=== PATIENT | female | born 1950 | race African-American/Black ===

== ENCOUNTER → 2023-11-14 | Emergency (ER) | payer OTHER ==
[~2023-11-14] MED LIST: HYDROCODONE/APAP 10/325 TAB ONE; ONDANSETRON 4 MG (ODT) TAB ONE; methocarbamoL 750 MG TAB ONE
--- NOTE | 2023-11-15 00:25 | EDPHYS ---
Physician Documentation [facility] Name: Vaishnavi Hogue Age: 73 yrs Sex: Female : 1950 Arrival Date: 11/14/2023 Time: 21:07 Bed 4 Private MD: out of town, doctor ED Physician Tez Barney HPI: 11/13 21:18 This 73 yrs old Black Female presents to ER via Unassigned with complaints of Fall sp4 Injury, Head Injury-Adult, Dizziness. 11/14 00:19 Patient is a very pleasant 73-year-old female who presents with acute fall last sp4 Monday 4 days ago with associated pain in the L-spine and associated headache from head injury at home. No additional traumatic injury reported. History of prior cervical spine surgery for facet arthropathy. . Historical: - Allergies: 11/13 21:46 No Known Allergies; vc1 - Home Meds: 21:46 atorvastatin Oral once daily [Active]; amlodipine oral [Active]; hydroxychloroquine vc1 oral [Active]; Metoprolol Tartrate Oral [Active]; Advantage with Iron 2.07-5.6 gram/100 kcal oral powder [Active]; Calcium Carbonate Oral [Active]; - PSHx: 21:46 Gastric Bypass; vc1 - Immunization history:: Client reports receiving the 2nd dose of the Covid vaccine, Flu vaccine is not up to date. - Social history:: Smoking status: Patient denies any tobacco usage or history of. - Family history:: not pertinent. ROS: 11/14 00:19 Constitutional: Negative for fever, chills, and weight loss, positive headache sp4 positive L-spine pain All other systems are negative, Exam: 00:19 Constitutional: This is a well developed, well nourished patient who is awake, alert, sp4 and in no acute distress. Head/Face: Normocephalic, atraumatic. Eyes: Pupils equal round and reactive to light, extra-ocular motions intact. Lids and lashes normal. Conjunctiva and sclera are not injected. Cornea within normal limits. Periorbital areas with no swelling, redness, or edema. ENT: Nares patent. No nasal discharge, no septal abnormalities noted. Tympanic membranes are normal and external auditory canals are clear. Oropharynx with no redness, swelling, or masses, exudates, or evidence of obstruction, uvula midline. Mucous membranes moist. Neck: Trachea midline, no thyromegaly or masses palpated, and no cervical lymphadenopathy. Supple, full range of motion without nuchal rigidity, or vertebral point tenderness. Posterior C spinal scar from prior cervical spine surgery Chest/axilla: Normal chest wall appearance and motion. Nontender with no deformity. No lesions are appreciated. Cardiovascular: Regular rate and rhythm with a normal S1 and S2. No gallops, murmurs, or rubs. Normal PMI, no JVD. No pulse deficits. Respiratory: Lungs have equal breath sounds bilaterally, clear to auscultation and percussion. No rales, rhonchi or wheezes noted. No increased work of breathing, no retractions or nasal flaring. Abdomen/GI: Soft, with normal bowel sounds. No distension or tympany. No guarding or rebound. No evidence of tenderness throughout. Back: No spinal tenderness. No costovertebral tenderness. Skin: Warm, dry with normal turgor. Normal color with no rashes, no lesions, and no evidence of cellulitis. MS/ Extremity: Pulses equal, no cyanosis. Neurovascular intact. Full, normal range of motion. Neuro: Awake and alert, GCS 15, oriented to person, place, time, and situation. Cranial nerves II-XII grossly intact. Motor strength 5/5 in all extremities. Sensory grossly intact. Patient able to ambulate with assistance Psych: Awake, alert, with orientation to person, place and time. Behavior, mood, and affect are within normal limits Vital Signs: 11/13 21:35 BP 139 / 62; Pulse 80; Resp 16; Temp 98.4; Pulse Ox 99% ; Weight 136.53 kg; Height 5 vc1 ft. 7 in. ; Pain 10/10; 23:43 BP 130 / 57; Pulse 72; Resp 16; Pulse Ox 96% ; vc1 11/14 00:32 BP 134 / 54; Pulse 72; Resp 16; Pulse Ox 94% on R/A; vc1 11/13 21:35 Body Mass Index 47.14 (136.53 kg, 170.18 cm) vc1 11/13 21:35 Pain Scale: Adult vc1 [place] Coma Score: 00:19 Eye Response: spontaneous(4). Motor Response: obeys commands(6). Verbal Response: sp4 oriented(5). Total: 15. MDM: 11/13 21:58 Patient medically screened. sp4 11/14 00:02 ED course: CT Report - IMPRESSION: 1. No acute intracranial abnormality identified. 2. sp4 No acute osseous abnormality identified in the cervical spine. 3. No acute traumatic abnormality identified in the chest, abdomen, or pelvis. 4. Right ovarian 6.4 cm simple cystic structure. Recommend prompt follow-up with pelvic ultrasound. Electronically signed by: Diana Jameson MD 11/14/2023 11:44 PM. 00:18 ED course: CT C Spine in detail - CT cervical spine: No acute osseous abnormality sp4 identified. Postsurgical changes, with laminotomy defects on the left from C3 through C7. Vertebral body height and alignment are maintained. No atlantodental interval widening. Atlantoaxial alignment is maintained. The facet joints are well aligned. The posterior elements are intact. The occipital condyles are well aligned with the C1 lateral masses. The transverse foramina are intact. C2-C3: No significant central canal or neuroforaminal narrowing. C3-C4: Large posterior disc protrusion results in mild to moderate central canal narrowing to 0.6 cm AP. No significant neuroforaminal narrowing. C4-C5: Mild right-sided and moderate left-sided neuroforaminal narrowing due to uncinate hypertrophy. No significant central canal narrowing. C5-C6: Posterior disc osteophyte complex results in mild central canal narrowing to 0.7 cm AP. Mild bilateral neuroforaminal narrowing due to uncinate hypertrophy. C6-C7: Posterior disc osteophyte complex results in borderline central canal narrowing to 0.8 cm AP. No significant neuroforaminal narrowing. Paraspinal soft tissues: No prevertebral soft tissue swelling. No evidence of epidural hematoma. . 00:22 Differential diagnosis: abrasion, closed head injury, contusion, fracture, laceration, sp4 multiple trauma. Data reviewed: vital signs, nurses notes, radiologic studies, CT scan. Consideration of Admission/Observation Escalation of care including admission/observation considered. ED course: CT report reveals no acute intracranial abnormality, no acute osseous abnormality of the cervical spine, no acute traumatic injury in the chest abdomen or pelvis. The right ovarian simple cyst. Otherwise no significant problem. Will advise outpatient pelvic ultrasound as recommended by radiology for right ovarian 6.4 cm simple cyst. . 11/13 21:41 Order name: CT Traumagram (Head C Spine CAP wo con) sp4 Administered Medications: 11/13 22:11 Drug: [place] PO 10 mg-325 mg 1 tabs PO once Route: PO; [facility] 11/14 00:33 Follow up: Response: No adverse reaction; Marked relief of symptoms; Pain is decreased vc1 11/13 22:11 Drug: Ondansetron PO 4 mg PO once Route: PO; [facility] 11/14 00:33 Follow up: Response: No adverse reaction; Marked relief of symptoms; Pain is decreased vc1 11/13 22:11 Drug: Methocarbamol PO 750 mg PO once Route: PO; [facility] 11/14 00:33 Follow up: Response: No adverse reaction; Marked relief of symptoms vc1 Disposition Summary: 11/15/23 00:24 Discharge Ordered Notes: Location: Home sp4 Problem: new sp4 Symptoms: have improved sp4 Condition: Stable sp4 Diagnosis - Other and unspecified ovarian cysts sp4 - Unspecified injury of head, initial encounter sp4 - Acute fall at home, acute head injury, acute lower back pain, acute lower back pain sp4 secondary to fall, incidental finding of right ovarian cyst Followup: sp4 - With: Private Physician - When: 7 - 10 days - Reason: Recheck today's complaints Discharge Instructions: - Discharge Summary Sheet sp4 - Head Injury, Adult sp4 - Ovarian Cyst, [id number] sp4 Forms: - Patient Portal Instructions sp4 Prescriptions: - methocarbamol 750 mg Oral tablet - take 1 tablet ORAL route every 8 hours PRN muscle soreness; 30 tablet; Refills: sp4 0, Product Selection Permitted - Tramadol 50 mg Oral tablet - take 1 tablet ORAL route every 8 hours as needed; 20 tablet; Refills: 0, sp4 Product Selection Permitted Signatures: Dispatcher [employer] Shayla Esquivel RN RN vc1 Tez Barney MD MD sp4 Es Ramirez RN RN [id number] Corrections: (The following items were deleted from the chart) 11/13 21:53 21:46 Allergies: Pepto-Bismol; states makes tongue; vc1 vc1
--- NOTE | 2023-11-15 00:25 | ER ---
Nurse's Notes [facility] Name: Vaishnavi Hogue Age: 73 yrs Sex: Female : 1950 Arrival Date: 11/14/2023 Time: 21:07 Bed 4 Private MD: out of town, doctor Diagnosis: Other and unspecified ovarian cysts;Unspecified injury of head, initial encounter;Acute fall at home, acute head injury, acute lower back pain, acute lower back pain secondary to fall, incidental finding of right ovarian cyst Presentation: 11/13 21:35 Chief complaint: Patient states: Fell and hit head Monday while doing dishes, leg went vc1 to sleep and when I stood up I fell monday. Coronavirus screen: Vaccine status: Patient reports receiving the 2nd dose of the covid vaccine. Client denies travel out of the [place] in the last 14 days. At this time, the client does not indicate any symptoms associated with coronavirus-19. Ebola Screen: Patient negative for fever greater than or equal to 101.5 degrees Fahrenheit, and additional compatible Ebola Virus Disease symptoms Patient denies exposure to infectious person. Patient denies travel to an Ebola-affected area in the 21 days before illness onset. No symptoms or risks identified at this time. Initial Sepsis Screen: Does the patient meet any 2 criteria? No. Patient's initial sepsis screen is negative. Does the patient have a suspected source of infection? No. Patient's initial sepsis screen is negative. Risk Assessment: Do you want to hurt yourself or someone else? Patient reports no desire to harm self or others. Onset of symptoms was November 10, 2023. Care prior to arrival: None. Activity prior to arrival: None. Mechanism of Injury: Fall. Transition of care: patient was not received from another setting of care. 21:35 Method Of Arrival: Ambulatory vc1 21:35 Acuity: JOB 2 vc1 Triage Assessment: 21:53 General: Appears in no apparent distress. comfortable, obese, Behavior is calm, vc1 cooperative, appropriate for age. Pain: Complains of pain in forehead, right protestant, right side of the back of head, right temporal area, right occipital area, right ear and right base of the skull Pain does not radiate. Pain currently is 10 out of 10 on a pain scale. Quality of pain is described as sharp, Pain began suddenly, 2-3 days ago. Is continuous. Pain: Complains of pain in low back area Pain does not radiate. Pain currently is 10 out of 10 on a pain scale. Quality of pain is described as sharp, Pain began suddenly, Is continuous, Alleviated by medications, Aggravated by increased activity, repositioning, Noted to be grimacing, resistant to movement, Also complains of no other associated symptoms. EENT: No deficits noted. No signs and/or symptoms were reported regarding the EENT system. Neuro: Level of Consciousness is awake, alert, obeys commands, Oriented to person, place, time, situation, Appropriate for age. Cardiovascular: Capillary refill < 3 seconds Patient's skin is warm and dry. Respiratory: Airway is patent Respiratory effort is even, unlabored, Respiratory pattern is regular, symmetrical. GI: No deficits noted. No signs and/or symptoms were reported involving the gastrointestinal system. Abdomen is non-distended, obese. : No deficits noted. No signs and/or symptoms were reported regarding the genitourinary system. Derm: No deficits noted. No signs and/or symptoms reported regarding the dermatologic system. Musculoskeletal: Circulation, motion, and sensation intact. Capillary refill < 3 seconds, Range of motion: intact in all extremities, Reports pain in head and lower back. Historical: - Allergies: 21:46 No Known Allergies; vc1 - Home Meds: 21:46 atorvastatin Oral once daily [Active]; amlodipine oral [Active]; hydroxychloroquine vc1 oral [Active]; Metoprolol Tartrate Oral [Active]; Advantage with Iron 2.07-5.6 gram/100 kcal oral powder [Active]; Calcium Carbonate Oral [Active]; - PSHx: 21:46 Gastric Bypass; vc1 - Immunization history:: Client reports receiving the 2nd dose of the Covid vaccine, Flu vaccine is not up to date. - Social history:: Smoking status: Patient denies any tobacco usage or history of. - Family history:: not pertinent. Screenin:[facility] ED Fall Risk Assessment (Adult) History of falling in the last 3 months, vc1 including since admission Yes- fall prone (multiple falls) (3 pts) Confusion or Disorientation No (0 pts) Intoxicated or Sedated No (0 pts) Impaired Gait No (0 pts) Mobility Assist Device Used Yes (1 pt) Altered Elimination No (0 pt) Score/Fall Risk Level 3 or more points = High Risk Oriented to surroundings, Maintained a safe environment, Educated pt \T\ family on fall prevention, incl call for assistance when getting out of bed, Hourly rounding (assess needs \T\ fall precautionary measures) done, Utilized family, sitter, or virtual on call pharmacy technician as indicated. Abuse screen: Denies threats or abuse. Nutritional screening: No deficits noted. Tuberculosis screening: No symptoms or risk factors identified. Assessment: 21:56 General: See triage assessment. vc1 23:00 Reassessment: Patient and/or family updated on plan of care and expected duration. Pain vc1 level reassessed. Patient is alert, oriented x 3, equal unlabored respirations, skin warm/dry/pink. Patient states symptoms have improved. 23:43 Reassessment: Patient appears in no apparent distress at this time. No changes from vc1 previously documented assessment. Patient and/or family updated on plan of care and expected duration. Pain level reassessed. Patient is alert, oriented x 3, equal unlabored respirations, skin warm/dry/pink. 11/14 00:32 Reassessment: Patient appears in no apparent distress at this time. No changes from vc1 previously documented assessment. Patient and/or family updated on plan of care and expected duration. Pain level reassessed. Patient is alert, oriented x 3, equal unlabored respirations, skin warm/dry/pink. Vital Signs: 11/13 21:35 BP 139 / 62; Pulse 80; Resp 16; Temp 98.4; Pulse Ox 99% ; Weight 136.53 kg; Height 5 vc1 ft. 7 in. ; Pain 10/10; 23:43 BP 130 / 57; Pulse 72; Resp 16; Pulse Ox 96% ; vc1 11/14 00:32 BP 134 / 54; Pulse 72; Resp 16; Pulse Ox 94% on R/A; vc1 11/13 21:35 Body Mass Index 47.14 (136.53 kg, 170.18 cm) 1 11/13 21:35 Pain Scale: Adult vc1 [place] Coma Score: 00:19 Eye Response: spontaneous(4). Motor Response: obeys commands(6). Verbal Response: sp4 oriented(5). Total: 15. ED Course: 11/13 21:12 Patient arrived in ED. gm2 21:13 out of town, doctor is Private Physician. gm2 21:18 Tez Barney MD is Attending Physician. sp4 21:45 Triage completed. vc1 21:53 Arm band placed on right wrist. vc1 21:57 Patient has correct armband on for positive identification. Bed in low position. Call vc1 light in reach. Pulse ox on. NIBP on. 22:56 CT Traumagram (Head C Spine CAP wo con) In Process Unspecified. EDMS 23:43 Shayla Mg RN is Primary Nurse. vc1 11/14 00:32 No provider procedures requiring assistance completed. Patient did not have IV access vc1 during this emergency room visit. 00:33 Provided Education on: follow up with OB and pain management. vc1 Administered Medications: 11/13 22:11 Drug: [place] PO 10 mg-325 mg 1 tabs PO once Route: PO; [facility] 11/14 00:33 Follow up: Response: No adverse reaction; Marked relief of symptoms; Pain is decreased vc 11/13 22:11 Drug: Ondansetron PO 4 mg PO once Route: PO; [facility] 11/14 00:33 Follow up: Response: No adverse reaction; Marked relief of symptoms; Pain is decreased vc 11/13 22:11 Drug: Methocarbamol PO 750 mg PO once Route: PO; [facility] 11/14 00:33 Follow up: Response: No adverse reaction; Marked relief of symptoms vc1 Medication: 11/13 21:57 VIS not applicable for this client. vc1 Outcome: 11/14 00:24 Discharge ordered by . sp4 00:33 Discharged to home ambulatory, with family, vc1 00:33 Condition: improved 00:33 Discharge instructions given to patient, Instructed on discharge instructions, follow up and referral plans. medication usage, Demonstrated understanding of instructions, follow-up care, medications, Prescriptions given X 2, 00:34 Patient left the ED. vc1 Signatures: Dispatcher [employer] EDMS Shayla Mg, TOSHA RN vc1 Tez Barney MD MD sp4 Payal Wade gm2 Es Ramirez RN RN [id number] Corrections: (The following items were deleted from the chart) 11/13 21:53 21:46 Allergies: Pepto-Bismol; states makes tongue; vc1 vc1
[2023-11-15 01:05] VITALS: BP 134/54; TEMP 98.4; O2SAT 94
--- NOTE | 2023-11-15 19:34 | RAD REPORT ---
EXAM DESCRIPTION: CT - Head C Spine Cap Wo Con - 11/15/2023 6:51 am CLINICAL HISTORY: Fall head and back injury. TECHNIQUE: Noncontrast CT through the head was performed. Axial, coronal, and sagittal reconstructio ns were created and sent to PACS. CT of the cervical spine was performed without contrast. Axial, coronal, and sagittal reconstructions were created and sent to PACS. CT of the chest, abdomen, and pelvis was performed without contrast. Oral contrast was not administer ed. Axial, coronal, and sagittal reconstructions were created and sent to PACS. These exams were performed according to our departmental dose-optimization program which includes use of Automated Exposure Control, adjustment of the mA and/or kV according to patient size and/or use o f iterative reconstruction technique. COMPARISON: CT head from January 25, 2017. FINDINGS: CT Head: The brain parenchyma appears unremarkable. There is no intra-axial or extra-axial bleed seen. There i s no mass or mass effect. The ventricles are normal in size, shape, and configuration. The orbital co ntents appear unremarkable. The visualized paranasal sinuses and mastoid air cells are clear. No acute fracture is identified. CT cervical spine: No acute osseous abnormality identified. Postsurgical changes, with laminotomy defects on the left fr om C3 through C7. Vertebral body height and alignment are maintained. No atlantodental interval widen ing. Atlantoaxial alignment is maintained. The facet joints are well aligned. The posterior elements are intact. The occipital condyles are well aligned with the C1 lateral masses. The transverse forami na are intact. C2-C3: No significant central canal or neuroforaminal narrowing. C3-C4: Large posterior disc protrusion results in mild to moderate central canal narrowing to 0.6 cm AP. No significant neuroforaminal narrowing. C4-C5: Mild right-sided and moderate left-sided neuroforaminal narrowing due to uncinate hypertrophy. No significant central canal narrowing. C5-C6: Posterior disc osteophyte complex results in mild central canal narrowing to 0.7 cm AP. Mild b ilateral neuroforaminal narrowing due to uncinate hypertrophy. C6-C7: Posterior disc osteophyte complex results in borderline central canal narrowing to 0.8 cm AP. No significant neuroforaminal narrowing. Paraspinal soft tissues: No prevertebral soft tissue swelling. No evidence of epidural hematoma. CT chest, abdomen, and pelvis: Lungs and pleura: No pulmonary consolidation. No pleural effusion. No pneumothorax. Mediastinum and neck: No mediastinal lymphadenopathy identified by CT size criteria. Unremarkable haroldo earance of the thyroid gland. Cardiac: No cardiomegaly or pericardial effusion. No thoracic aortic aneurysm. Mild calcific atherosc lerosis. Mild prominence of the central pulmonary arteries, with the main pulmonary trunk measuring u p to 3.2 cm in diameter, which can be seen with pulmonary arterial hypertension. Hepatobiliary: No concerning hepatic lesion identified. Simple cyst in the left hepatic lobe. The gal lbladder is unremarkable. No biliary ductal dilatation. Pancreas: Unremarkable. Spleen: Unremarkable. Gastrointestinal: Carlos-en-Y gastric bypass. No evidence of bowel obstruction or perienteric inflammat ion. The appendix is nonvisualized. Adrenals: No abnormality identified in either adrenal gland. Renal: No concerning parenchymal abnormality in either kidney. No hydronephrosis or urolithiasis. Bladder/Reproductive: Unremarkable appearance of the urinary bladder by CT technique. Right ovarian s imple cystic structure measures 6.4 cm. Vascular/Lymphatics: No lymphadenopathy identified by CT size criteria. Abdominal aorta is normal in caliber. Musculoskeletal: Minimal irregularity at the tips of the lumbar spine transverse processes bilaterall y, favored chronic. No definite acute osseous abnormality is identified. Vertebral body height and al ignment are maintained. No concerning osseous lesion identified. Fluid / peritoneum: No significant free fluid. No free intraperitoneal air identified. IMPRESSION: 1. No acute intracranial abnormality identified. 2. No acute osseous abnormality identified in the cervical spine. 3. No acute traumatic abnormality identified in the chest, abdomen, or pelvis. 4. Right ovarian 6.4 cm simple cystic structure. Recommend prompt follow-up with pelvic ultrasound. Electronically signed by: Diana Jameson MD 11/14/2023 11:44 PM CDT Due to temporary technical issues with the PACS/Fluency reporting system, reports are being signed by the in house radiologists without review as a courtesy to insure prompt reporting. The interpreting radiologist is fully responsible for the content of the report.
== END ==
LOC: ER 21:07
DX: S09.90XA Unspecified injury of head, initial encounter (principal); M54.50 Low back pain, unspecified; W18.30XA Fall on same level, unspecified, initial encounter; N83.201 Unspecified ovarian cyst, right side
CPT/HCPCS: 70450; 71250; 72125; Q0162

== ENCOUNTER 2024-02-11 18:10 | Emergency (ER) | payer OTHER ==
[2024-02-11 20:01] LABS: Absolute Eosinophils 0.2 K/uL (0-0.5); Absolute Lymphocytes (CBC) 0.6 K/uL (0.7-4.9); Absolute Monocytes 0.5 K/uL (0.1-1.3); Absolute Neutrophil 6.5 K/uL (1.8-8.0); Basophils % 0.5 % (0-1.3); Eosinophils % 3.2 % (0-4.4); Hematocrit 33.6 % (36.0-45.0); Lymphocytes % 7.1 % (15.3-44.8); MCH 30.6 pg (27.0-35.0); MCHC 32.8 g/dL (32.0-36.0); MCV 93.4 fL (80-100); MPV 8.3 fL (7.6-11.3); Monocytes % 6.9 % (3.3-12.3); Neutrophils % 82.3 % (41.7-73.7); Nucleated Red Blood Cells % 0.1 % (0-0); Platelets 361 thou/uL (152-406); RBC Red Blood Cell Count 3.59 M/uL (3.86-4.86); Red Cell Distribution Width 15.6 % (12.1-15.2)
[2024-02-11 20:15] LABS: SARS-CoV-2 Antigen CONTROL BLUE LINE VIS/BG OK
[2024-02-11 20:16] LABS: SARS-CoV-2 Antigen Rapid Res Positive (Negative)
[2024-02-11 20:46] LABS: ALT/SGPT 16 U/L (13-56); Albumin 2.6 g/dL (3.4-5.0); Albumin/Globulin Ratio 0.6 (1.1-1.8); Alkaline Phosphatase 98 U/L (45-117); Anion Gap 7.2 mEq/L (5.0-15.0); BUN Blood Urea Nitrogen 14 mg/dL (7-18); Bicarbonate 28 mEq/L (21-32); Bilirubin Total 0.2 mg/dL (0.2-1.0); Globulin 4.7 g/dL (2.3-3.5); Glomerular Filtration Rate 49 ml/min (=/>90); Glucose Level 99 mg/dL (74-106); NT PRO-BNP 863 pg/mL (<125); Protein, Total 7.3 g/dL (6.4-8.2); Sodium Level 140 mEq/L (136-145); Troponin High Sensitivity 10.8 pg/mL (<58.9)
[2024-02-11 20:48] LABS: AST/SGOT 17 U/L (15-37); Bilirubin Direct < 0.2 mg/dL (0-0.2); Magnesium 2.1 mg/dL (1.6-2.4); Potassium 4.2 mEq/L (3.5-5.1)
--- NOTE | 2024-02-11 21:10 | RAD REPORT ---
EXAM DESCRIPTION: RAD - Chest Pa And Lat (2 Views) - 02/11/2024 8:42 pm CLINICAL HISTORY: COUGH COMPARISON: Chest Single View dated 01/28/2017; Chest Single View dated 01/25/2017; Chest Single View d ated 03/15/2016; CHEST SINGLE VIEW dated 09/04/2015; Head C Spine Cap Wo Con dated 11/14/2023 FINDINGS: Lines: None. Lungs: No evidence of edema or pneumonia. Opacity at the peripheral left lung base likely related to configuration of the patient's pericardial fat pad. Pleural: No significant pleural effusions or pneumothorax. Cardiac: The heart size is within normal limits. Mediastinum: Within normal limits. Bones: No acute fractures. Other: None IMPRESSION: No acute cardiopulmonary disease.
--- NOTE | 2024-02-11 22:22 | RAD REPORT ---
EXAM DESCRIPTION: CTAbdomen Pelvis W Contrast - 02/11/2024 10:02 pm CLINICAL HISTORY: ABD PAIN COMPARISON: Head C Spine Cap Wo Con dated 11/14/2023; CT HEAD CSPINE CAP WO CONTRAST dated 08/03/2015 TECHNIQUE: CT of the abdomen and pelvis was performed. All CT scans are performed using dose optimization technique as appropriate and may include automated exposure control or mA/KV adjustment according to patient size. FINDINGS: Lower chest: Coronary artery calcifications. Liver: Several liver lesions identified, the largest measuring 7 cm in the left hepatic lobe which alarcon s benign imaging features. Biliary: Distended with possible stones or sludge. No pericholecystic inflammatory changes. Stomach: Carlos-en-Y gastric bypass. Duodenum: No significant focal abnormality. Pancreas: No significant abnormality. Spleen: No significant abnormality. Adrenal: No suspicious lesions. Kidney/ureter: No hydronephrosis. No renal calculi. Too small to characterize and/or benign appearing renal lesions are noted. Retroperitoneum: No retroperitoneal adenopathy. Vascular: Severely stenotic SMA Bowel: No significant focal abnormality. Peritoneum: Similar nodularity in the omentum which is similar to 11/14/2023. It may be postoperative . Bladder: Grossly unremarkable. Reproductive: 6.7 cm cystic right adnexal lesion. Contour abnormality along the left aspect of the ut erus may be due to an underlying fibroid. Bones: No acute fracture. Multilevel degenerative changes are present in the spine. Other: n/a IMPRESSION: No acute intra-abdominal or pelvic finding. Right adnexal cystic lesion which is unchanged from 11/14/2023. Recommend further evaluation with non emergent pelvic ultrasound. Mild omental nodularity which may reflect postoperative changes. This is similar to 11/14/2023. The a ppearance can also be seen with peritoneal carcinomatosis though there are no other ancillary finding s to suggest underlying malignancy. Consider six-month follow-up CT. Distended gallbladder with sludge versus noncalcified stones. No CT findings to suggest acute cholecy stitis. Other incidental findings as noted above.
[2024-02-11] MEDS ORDERED: ONDANSETRON 4 MG/2 ML VIAL ONE (22:53)
[2024-02-11] MEDS ORDERED: FAMOTIDINE 20 MG/2 ML VIAL IV ONE (22:53)
[2024-02-11] MEDS ORDERED: NS 0.9% VIAL 10 ML ONE (22:53)
[2024-02-11] MEDS ORDERED: ACETAMINOPHEN 500 MG TAB ONE (23:46)
--- NOTE | 2024-02-12 08:56 | EDPHYS ---
Physician Documentation [facility] Name: Vaishnavi Hogue Age: 73 yrs Sex: Female : 1950 Arrival Date: 02/11/2024 Time: 18:10 Bed 11 Private MD: ED Physician Bg German Historical: - Allergies: 02/10 18:22 bismuth subsalicylate; ll1 - PMHx: 18:22 Diabetes - NIDDM; High Cholesterol; Gout; Hypertension; ll1 - PSHx: 18:22 Gastric Bypass; ll1 - Immunization history:: Adult Immunizations up to date. - Infectious Disease History:: Denies. - Social history:: Smoking status: Patient denies any tobacco usage or history of. Vital Signs: 18:23 BP 196 / 71; Pulse 88; Resp 18; Temp 98.5; Pulse Ox 99% ; Weight 131.09 kg; Height 5 ll1 ft. 7 in. ; Pain 8/10; 20:14 BP 168 / 74; Pulse 98; Resp 16; Temp 99.1; Pulse Ox 100% on R/A; al5 22:59 Temp 100.7(O); cm10 02/11 02:00 BP 130 / 57; Pulse 106; Resp 20; Temp 100.5; Pulse Ox 95% ; vc1 02/10 18:23 Body Mass Index 45.26 (131.09 kg, 170.18 cm) ll1 02/10 18:23 Pain Scale: Adult ll1 MDM: 02/10 19:10 Patient medically screened. 02/10 19:30 Order name: SARS RAPID; Complete Time: 21:02 02/10 19:30 Order name: Influenza Screen (a \T\ B); Complete Time: 21:02 cp 02/10 19:30 Order name: Strep; Complete Time: 21:02 cp 02/10 19:31 Order name: Basic Metabolic Panel; Complete Time: 21:02 cp 02/10 21:03 Interpretation: Normal except: CL 109; CRE 1.18; GFR 49. cp 02/10 19:31 Order name: CBC with Diff; Complete Time: 21:02 cp 02/10 21:03 Interpretation: Normal except: RBC 3.59; HGB 11.0; HCT 33.6; RDW 15.6; RIKKI% 82.3; LYM% cp 7.1; LYMA 0.6. 02/10 19:31 Order name: LFT's; Complete Time: 21:02 cp 02/10 21:03 Interpretation: Normal except: IBILI, CALC 0.0; ALB 2.6; GLOB 4.7; A/G 0.6. cp 02/10 19:31 Order name: Magnesium; Complete Time: 21:02 cp 02/10 19:31 Order name: NT PRO-BNP; Complete Time: 21:02 cp 02/10 19:31 Order name: Troponin HS; Complete Time: 21:02 cp 02/10 20:20 Order name: Throat Culture EDMA 02/10 19:30 Order name: XRAY Chest Pa And Lat (2 Views); Complete Time: 22:27 cp 02/10 21:10 Order name: CT Abd/Pelvis - IV Contrast Only; Complete Time: 22:27 cp 02/10 23:53 Order name: Abdomen Exam Limited [facility] 02/10 19:31 Order name: EKG; Complete Time: 19:31 cp 02/10 19:31 Order name: Cardiac monitoring; Complete Time: 19:55 cp 02/10 19:31 Order name: EKG - Nurse/Tech; Complete Time: 19:55 cp 02/10 19:31 Order name: IV Saline Lock; Complete Time: 19:55 cp 02/10 19:31 Order name: Labs collected and sent; Complete Time: 19:55 cp 02/10 19:31 Order name: O2 Per Protocol; Complete Time: 19:55 cp 02/10 19:31 Order name: O2 Sat Monitoring; Complete Time: 19:55 cp 02/10 20:06 Order name: Misc. Order: recollect lab- green top; Complete Time: 20:22 kmf 02/10 22:29 Order name: NPO; Complete Time: 22:59 cp 02/10 23:22 Order name: PO challenge; Complete Time: 23:51 cp Administered Medications: 22:59 Drug: Ondansetron IVP 4 mg IVP once; over 2 minutes Route: IVP; Site: right antecubital;cm10 22:59 Drug: Famotidine IVP 20 mg IVP once; dilute with 10 mL 0.9% NaCl; give over 2 minutes cm10 Route: IVP; Site: right antecubital; 23:51 Drug: Acetaminophen PO 1000 mg PO once Route: PO; cm10 Disposition Summary: 02/12/24 01:02 Discharge Ordered Notes: Location: Home cp Problem: new cp Symptoms: have improved cp Condition: Stable cp Diagnosis - SARS-associated coronavirus as the cause of diseases classified elsewhere cp - Nausea with vomiting, unspecified cp - Abdominal pain, unspecified cp - Cough cp Followup: cp - With: Private Physician - When: 2 - 3 days - Reason: Worsening of condition Discharge Instructions: - Discharge Summary Sheet cp - Abdominal Pain, Adult cp - Nausea and Vomiting, Adult cp - Aspirin and Your Heart cp - Cough, Adult cp - COVID-19 cp - How to Protect Yourself and Others - [facility] (10/15/2021) cp - 10 Things You Can Do to Manage Your COVID-19 Symptoms at Home - [facility] (03/05/2021) cp - COVID-19: Quarantine and Isolation - [facility] (11/17/2021) cp - COVID-19: What to Do If You Are Sick - [facility] (11/09/2021) cp Forms: - Medication Reconciliation Form cp - Antibiotic Education cp - Prescription Opioid Use cp - Patient Portal Instructions cp - Leadership Thank You Letter cp Prescriptions: - Bromfed DM 2-30-10 mg/5 mL Oral syrup - administer 10 milliliter ORAL route every 8 hours as needed for cough; 240 cp milliliter; Refills: 0, Product Selection Permitted - Paxlovid 300 mg (150 mg x 2)-100 mg Oral Tablet, Dose Pack - take 1 dose pack ORAL route as directed on dose pack for 5 days take TWO 150 mg cp tablets of nirmatrelvir with ONE 100 mg tablet of ritonavir twice daily for 5 days; 1 Pack; Refills: 0, Product Selection Permitted - ondansetron 8 mg Oral Tablet,disintegrating - take 1 tablet ORAL route every 12 hours; 20 tablet; Refills: 0, Product cp Selection Permitted Signatures: Dispatcher [employer] Yeyo Mandujano PA PA cp Lewis, Lynsay RN RN ll1 January Oliveira RN RN cm10 Ava Castaneda [facility]
--- NOTE | 2024-02-12 08:56 | ER ---
Nurse's Notes [facility] Name: Vaishnavi Hogue Age: 73 yrs Sex: Female : 1950 Arrival Date: 02/11/2024 Time: 18:10 Bed 11 Private MD: Diagnosis: SARS-associated coronavirus as the cause of diseases classified elsewhere;Nausea with vomiting, unspecified;Abdominal pain, unspecified;Cough Presentation: 02/10 18:23 Chief complaint: Patient states: Cough, congestion, ALLRED, chills, SOB, CP for 2 days. ll1 Coronavirus screen: Client denies travel out of the [place] in the last 14 days. chills, cough unrelated to allergies, fatigue, headache, muscle pain, nausea, vomiting. Client presents with at least one sign or symptom that may indicate coronavirus-19. Standard/surgical mask placed on the client. Ebola Screen: Patient denies travel to an Ebola-affected area in the 21 days before illness onset. Initial Sepsis Screen: Does the patient meet any 2 criteria? No. Patient's initial sepsis screen is negative. Does the patient have a suspected source of infection? No. Patient's initial sepsis screen is negative. Risk Assessment: Do you want to hurt yourself or someone else? Patient reports no desire to harm self or others. Onset of symptoms was February 10, 2024. 18:23 Method Of Arrival: Ambulatory 1 18:23 Acuity: JOB 3 ll1 Triage Assessment: 18:23 General: Appears uncomfortable, ill, Behavior is calm, cooperative, appropriate for ll1 age. General: Reports chills for feeling ill for fatigue for. Pain: Complains of pain in head Quality of pain is described as aching. Neuro: Reports headache weakness. Respiratory: Reports shortness of breath cough that is. GI: Reports diarrhea. Historical: - Allergies: 18:22 bismuth subsalicylate; ll1 - PMHx: 18:22 Diabetes - NIDDM; High Cholesterol; Gout; Hypertension; ll1 - PSHx: 18:22 Gastric Bypass; ll1 - Immunization history:: Adult Immunizations up to date. - Infectious Disease History:: Denies. - Social history:: Smoking status: Patient denies any tobacco usage or history of. Screenin:52 [facility] ED Fall Risk Assessment (Adult) History of falling in the last 3 months, al5 including since admission No falls in past 3 months (0 pts) Confusion or Disorientation No (0 pts) Intoxicated or Sedated No (0 pts) Impaired Gait No (0 pts) Mobility Assist Device Used No (0 pt) Altered Elimination No (0 pt) Score/Fall Risk Level 0 - 2 = Low Risk Oriented to surroundings, Educated pt \T\ family on fall prevention, incl call for assistance when getting out of bed, Hourly rounding (assess needs \T\ fall precautionary measures) done. Abuse screen: Denies threats or abuse. Denies injuries from another. Nutritional screening: No deficits noted. Tuberculosis screening: No symptoms or risk factors identified. Assessment: 19:50 Reassessment:. General: Appears in no apparent distress. Behavior is calm, cooperative. al5 Pain: Pain currently is 8 out of 10 on a pain scale. Pain began 2-3 days ago. Is continuous. Neuro: No deficits noted. Level of Consciousness is awake, alert, obeys commands, Oriented to person, place, time, situation, Gait is steady, Speech is normal, Facial symmetry appears normal. Cardiovascular: No deficits noted. Patient's skin is warm and dry. Rhythm is sinus rhythm. Respiratory: No deficits noted. Airway is patent Trachea midline Respiratory effort is even, unlabored, Respiratory pattern is regular, symmetrical, cough. Derm: No deficits noted. Skin is intact, Skin is pink, warm \T\ dry. normal, Skin temperature is warm. 21:00 Reassessment: No changes from previously documented assessment. al5 22:10 Reassessment: No changes from previously documented assessment. al5 23:40 Reassessment: Patient and/or family updated on plan of care and expected duration. Pain al5 level reassessed. Patient is alert, oriented x 3, equal unlabored respirations, skin warm/dry/pink. Patient states symptoms have not improved. 02/11 02:01 Reassessment: Patient appears in no apparent distress at this time. No changes from vc1 previously documented assessment. Patient and/or family updated on plan of care and expected duration. Pain level reassessed. Patient is alert, oriented x 3, equal unlabored respirations, skin warm/dry/pink. Vital Signs: 02/10 18:23 BP 196 / 71; Pulse 88; Resp 18; Temp 98.5; Pulse Ox 99% ; Weight 131.09 kg; Height 5 ll1 ft. 7 in. ; Pain 8/10; 20:14 BP 168 / 74; Pulse 98; Resp 16; Temp 99.1; Pulse Ox 100% on R/A; al5 22:59 Temp 100.7(O); cm10 02/11 02:00 BP 130 / 57; Pulse 106; Resp 20; Temp 100.5; Pulse Ox 95% ; vc1 02/10 18:23 Body Mass Index 45.26 (131.09 kg, 170.18 cm) ll1 02/10 18:23 Pain Scale: Adult ll1 ED Course: 02/10 18:17 Patient arrived in ED. mg5 18:25 Triage completed. ll1 18:25 Arm band placed on. ll1 19:10 Yeyo Willoughby PA is PHCP. cp 19:10 Bg German MD is Attending Physician. cp 19:38 Sophie Barragan RN is Primary Nurse. al5 19:53 Patient has correct armband on for positive identification. Bed in low position. Call al5 light in reach. 19:53 EKG done, by ED staff, reviewed by Yeyo KELLY COVID swab sent to lab. Flu and/or RSV cm10 swab sent to lab. Strep swab sent to lab. 19:55 Basic Metabolic Panel Sent. cm10 19:55 CBC with Diff Sent. cm10 19:55 LFT's Sent. cm10 19:55 Magnesium Sent. cm10 19:55 NT PRO-BNP Sent. cm10 19:55 Troponin HS Sent. cm10 19:55 Strep Sent. cm10 19:55 Influenza Screen (a \T\ B) Sent. cm10 19:55 SARS RAPID Sent. cm10 19:55 Initial lab(s) drawn, by ok. Inserted saline lock: 20 gauge in right antecubital area, cm10 using aseptic technique. Blood collected. 20:01 Strep Sent. al5 20:01 Influenza Screen (a \T\ B) Sent. al5 20:01 SARS RAPID Sent. al5 20:01 Basic Metabolic Panel Sent. al5 20:01 CBC with Diff Sent. al5 20:01 LFT's Sent. al5 20:01 Magnesium Sent. al5 20:01 NT PRO-BNP Sent. al5 20:01 Troponin HS Sent. al5 20:23 Notified Nurse Practitioner and/or Physician Plastic Technician of a critical lab result(s), al5 covid +. 20:43 XRAY Chest Pa And Lat (2 Views) In Process Unspecified. EDMS 22:04 CT Abd/Pelvis - IV Contrast Only In Process Unspecified. EDMS 02/11 00:08 Report given to TOSHA Mcguire. al5 00:33 Abdomen Exam Limited In Process Unspecified. EDMS 01:57 No provider procedures requiring assistance completed. IV discontinued, intact, vc1 bleeding controlled, No redness/swelling at site. Pressure dressing applied. Administered Medications: 02/10 22:59 Drug: Ondansetron IVP 4 mg IVP once; over 2 minutes Route: IVP; Site: right antecubital;cm10 22:59 Drug: Famotidine IVP 20 mg IVP once; dilute with 10 mL 0.9% NaCl; give over 2 minutes cm10 Route: IVP; Site: right antecubital; 23:51 Drug: Acetaminophen PO 1000 mg PO once Route: PO; cm10 Medication: 02/11 02:01 VIS not applicable for this client. vc1 Outcome: 01:02 Discharge ordered by . cp 02:01 Discharged to home ambulatory, vc1 02:01 Condition: good 02:01 Discharge instructions given to patient, Instructed on discharge instructions, follow up and referral plans. medication usage, Demonstrated understanding of instructions, follow-up care, medications, Prescriptions given X 3, 02:01 Patient left the ED. vc1 Signatures: Dispatcher [employer] EDFL Yeyo Willoughby PA PA Cierra Kilgore RN RN ll1 Shayla Mg RN RN vc1 January Oliveira RN RN cm10 Jazmín Smith mg5 Sophie Barragan RN RN al5 Corrections: (The following items were deleted from the chart) 02/10 19:56 19:53 EKG done, COVID swab sent to lab. Flu and/or RSV swab sent to lab. Strep swab cm10 sent to lab. al5
--- NOTE | 2024-02-12 13:03 | EKG ---
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
[2024-02-12 14:48] VITALS: BP 130/57; TEMP 100.5; O2SAT 95
--- NOTE | 2024-02-12 22:57 | RAD REPORT ---
EXAM DESCRIPTION: US - Abdomen Exam Limited - 02/12/2024 12:31 am CLINICAL HISTORY: 73 years Female ruq pain COMPARISON: No prior exams provided for comparison. TECHNIQUE: real-time and perez scale sonographic imaging of the right upper quadrant was performed. FINDINGS: The gallbladder is contains a small amount of sludge. No gallbladder wall thickening, eloisa cholecystic fluid, or sonographic Silva's sign. The common bile duct is within normal limits, measur ing 3 mm in diameter. There is no visualized intrahepatic biliary ductal dilatation. IMPRESSION: Small amount of gallbladder sludge without evidence of acute cholecystitis or biliary di latation. Electronically signed by: Daysi Bernal MD 02/12/2024 12:54 AM CDT RP Due to temporary technical issues with the PACS/Fluency reporting system, reports are being signed by the in house radiologists without review as a courtesy to insure prompt reporting. The interpreting radiologist is fully responsible for the content of the report.
== END 2024-02-12 02:01 | disposition home or self-care (01) ==
LOC: ER 18:10
DX: U07.1 COVID-19 (principal); R11.2 Nausea with vomiting, unspecified; R10.9 Unspecified abdominal pain; Z98.84 Bariatric surgery status
CPT/HCPCS: 87070; 85025; 80048; 36415; 83735; 80076; 87081; 84484; 83880; 87804 ×2; 74177; 71046; 87811; Q9967; A4216; J2405; 76705; 93005